=== PATIENT | male | born 1955 | race Caucasian/White ===

== ENCOUNTER 2018-01-04 09:41 | Outpatient (CLI) | payer MEDICARE, OTHER | END 2018-01-04 23:59 | disposition home or self-care (01) | LOC: CARD 09:41 | PROVIDERS: ATTEND Internal Medicine Interventional Cardiology | DX: I65.23 Occlusion and stenosis of bilateral carotid arteries (principal) | CPT/HCPCS: 93880-TC ==

== ENCOUNTER 2018-11-12 17:40 | Inpatient (IN) | payer MEDICARE, OTHER ==
[~2018-11-12] VITALS: Ht 165.1 cm; Wt 74.8 kg
[2018-11-12 17:58] LABS: BASOPHILS % (AUTO) 1.8 % (0.0-2.0); EOSINOPHILS % (AUTO) 1.5 % (0.0-6.0); HEMATOCRIT 25 % (39-51); HEMOGLOBIN 8.3 g/dL (13.5-17.5); LYMPHOCYTES # (AUTO) 0.9 /CMM (0.8-4.8); LYMPHOCYTES % (AUTO) 30.8 % (20.0-44.0); MEAN CORPUSCULAR HGB CONC 33 g/dl (31.0-36.0); MEAN CORPUSCULAR VOLUME 97 fL (80-96); MONOCYTES # (AUTO) 0.3 /CMM (0.1-1.30); MONOCYTES % (AUTO) 9.2 % (2.0-12.0); NEUTROPHILS # (AUTO) 1.6 /CMM (1.8-8.9); NEUTROPHILS % (AUTO) 56.7 % (43.0-81.0); PLATELET COUNT (AUTO) 51 /CMM (150-450); RED BLOOD CELL COUNT(AUTO) 2.58 MIL/uL (4.5-6.0); WHITE BLOOD COUNT (AUTO) 2.8 K/uL (4.3-11.0)
--- NOTE | 2018-11-12 18:00 | NUR ---
Sent by Dr. Quezada for new onset A-fib and shortness of breath. alert and oriented x 4, verbally responsive. on 02 @ 2lpm via NC, sating at 98%. in no apparent distress at this time. connected to the monitor, and pulse ox. kept comfortable. will continue to monitor accordingly.
--- NOTE | 2018-11-12 18:10 | NUR ---
RT ATTEMPTED TO PLACE PT ON BiPAP PER DR. LOPEZ REQUEST. PT UNABLE TO TOLERATE BiPAP AND IS STATING HE FEELS LIKE ITS TOO MUCH PRESSURE DESPITE BEING ON LOWEST BiPAP SETTINGS. PT FAMILY BY BEDSIDE FOR TRANSLATION. PT PLACED ON 2L NASAL CANNULA, TOLERATING WELL AT THIS TIME. JUANA LOYD AND DR LOPEZ NOTIFIED AND AWARE.
[2018-11-12 18:11] LABS: CALCIUM, SERUM 8.6 mg/dL (8.5-10.1); CREATININE 0.8 mg/dL (0.6-1.3); POTASSIUM 4.1 mmol/L (3.5-5.1)
[2018-11-12 18:17] LABS: ALBUMIN 3.2 g/dL (3.4-5.0); BILIRUBIN,DIRECT 0.1 mg/dL (0.0-0.2); BILIRUBIN,TOTAL 0.3 mg/dL (0.2-1.0); TOTAL PROTEIN, SERUM 6.3 g/dL (6.4-8.2)
[2018-11-12] MEDS ORDERED: IV NS 0.9% 1,000 ML BAG IV ONE (18:30)
[2018-11-12] MEDS ORDERED: DILTIAZEM HCL 25 MG IV IV ONE (18:30)
[2018-11-12] MEDS ORDERED: KETOROLAC TROMETHAMINE INJ 30 MG/ML VIAL IV ONE (19:00)
[2018-11-12] MEDS ORDERED: ASPIRIN 325 MG TABLET PO ONE ×2 (19:00)
[2018-11-12] MEDS ORDERED: KETOROLAC TROMETHAMINE 15 MG/ML VIAL ONE (19:07)
[2018-11-12] MEDS ORDERED: ASPIRIN 325 MG TABLET ONE (19:08)
[2018-11-12] MEDS ORDERED: DILTIAZEM HCL 25 MG IV ONE (19:08)
[2018-11-12 19:19] LABS: EOSINOPHILS % (MANUAL) 1 % (0-4); LYMPHOCYTES % (MANUAL) 31 % (16-48); MONOCYTES % (MANUAL) 6 % (0-11.0); NEUTROPHILS % (MANUAL) 62 (42-76)
[2018-11-12] MEDS ORDERED: HYDROCODONE/APAP 5/325MG 1 EACH TABLET PO PRN (20:30)
[2018-11-12] MEDS ORDERED: HYDROCODONE/APAP 10/325MG 1 EA TABLET PO PRN (20:30)
[2018-11-12] MEDS ORDERED: MAGNESIUM HYDROXIDE 30 ML UDC PO PRN (20:30)
[2018-11-12] MEDS ORDERED: MAG HYDROX/AL HYDROX/SIMETH 30 ML UDC PO PRN (20:30)
[2018-11-12] MEDS ORDERED: ACETAMINOPHEN 325 MG TABLET PO PRN (20:30)
[2018-11-12] MEDS ORDERED: Z GUARD REMEDY 2 OZ OINT TP PRN (20:30)
[2018-11-12] MEDS ORDERED: ONDANSETRON HCL/PF 4 MG/2 ML VIAL IVP PRN (20:30)
--- NOTE | 2018-11-12 20:47 | NUR ---
REPORT GIVEN TO JUANA CASTRO FOR JACKIE
[2018-11-12 21:20] VITALS: BP 118/69
--- NOTE | 2018-11-12 21:20 | NUR ---
DOG CONTROL OFFICERCIA AGENT NOTES Received patient from ER via rney accompanied by 2 ER staff. Admitted to Tele 321-2 due to AFIB/RVR under the service of Singh Ruby. Admission routine done. Patient preferred to keep on his pants, refused skin assessment, claimed skin intact. On tele monitor - AFIB 90. Patient remained stable at this time, denies discomfort. On O2 inhalation @ 2LPM, saturating well @ 95%. Instructed to keep on bed rest for this time until cleared to ambulate and to use urinal and/or BSC to preserve cardiac workload, patient verbalized understanding. Instructed on CCHO - no coffee, no tea, patient verbalized understanding. Kept HOB elevated, on strict I&O, and aspiration precaution. Kept bed low and locked, sidreails x2 up. Call light at bedside. Will continue to monitor accordingly.
[2018-11-12] MEDS ORDERED: DEXTROSE 50%-WATER 50 ML DISP.SYRIN IV PRN (21:30)
[2018-11-12] MEDS ORDERED: BISOPROLOL FUMARATE 5 MG TABLET PO ONE (22:00)
[2018-11-12] MEDS: IPRATROPIUM NEB FS 0.5 MG/2.5 ML AMPUL.NEB NEB SCH (22:00)
--- NOTE | 2018-11-12 22:00 | NUR ---
POULTRY FARMER EGG NOTES RN o and m supervisor notified for ordered Zebeta unavailable in the omnicel, RN o and m supervisor said this meds is not available at this time. Notified ordering physician, awaiting for response. Patient's BP remained stable, no discomfort noted. HR 114 BP 118/68mmHg. Will continue to monitor accordingly.
[2018-11-12] MEDS: BLOOD SUGAR DIAGNOSTIC 1 EACH STRIP IN SCH (22:06)
[2018-11-13] VITALS (8 sets, daily range): BP systolic 105–124; BP diastolic 38–79
[2018-11-13] MEDS: ALBUTEROL FS 2.5 MG/0.5 ML VIAL.NEB NEB SCH ×4 (01:30→19:30)
--- NOTE | 2018-11-13 06:32 | NUR ---
PATENT DRAFTER CLOSING NOTES Patient asleep on high-Rai's position on bed. On tele monitor - Afib 115. On DVT pump BLE, tolerated well. On O2 inhalation via NC @2LPM, saturating well. No SOB/respiratory distress noted at this time. Patient noted having 1 large BM. All nursing needs attended. Kept on bed rest, with BSC and urinal at bedside. Kept on NPO since midnight for cardio eval. Kept bed low and locked, siderails x2 up. Call light at bedside. Endorsed to the next shift.
[2018-11-13] MEDS: BLOOD SUGAR DIAGNOSTIC 1 EACH STRIP IN SCH ×4 (06:36→21:27)
[2018-11-13 07:26] LABS: CALCIUM, SERUM 8.4 mg/dL (8.5-10.1); CREATININE 0.7 mg/dL (0.6-1.3); MAGNESIUM 1.6 mg/dL (1.8-2.4); PHOSPHORUS 3.4 mg/dL (2.5-4.9)
[2018-11-13] MEDS: IPRATROPIUM NEB FS 0.5 MG/2.5 ML AMPUL.NEB NEB SCH ×3 (07:35→19:30)
[2018-11-13 07:38] LABS: BASOPHILS % (AUTO) 0.7 % (0.0-2.0); EOSINOPHILS % (AUTO) 0.8 % (0.0-6.0); HEMATOCRIT 23 % (39-51); HEMOGLOBIN 7.7 g/dL (13.5-17.5); LYMPHOCYTES # (AUTO) 0.8 /CMM (0.8-4.8); LYMPHOCYTES % (AUTO) 25.7 % (20.0-44.0); MEAN CORPUSCULAR HGB CONC 34 g/dl (31.0-36.0); MEAN CORPUSCULAR VOLUME 96 fL (80-96); MONOCYTES # (AUTO) 0.3 /CMM (0.1-1.30); MONOCYTES % (AUTO) 10.3 % (2.0-12.0); NEUTROPHILS # (AUTO) 1.9 /CMM (1.8-8.9); NEUTROPHILS % (AUTO) 62.5 % (43.0-81.0); RED BLOOD CELL COUNT(AUTO) 2.36 MIL/uL (4.5-6.0); THYROID STIMULATING HORMONE 9.16 uIU/mL (0.358-3.74); WHITE BLOOD COUNT (AUTO) 3.1 K/uL (4.3-11.0)
[2018-11-13 07:49] LABS: PLATELET COUNT (AUTO) 40 /CMM (150-450)
--- NOTE | 2018-11-13 08:00 | NUR ---
ENGINEERING SUPERVISOR AM NOTES Patient awake,verbally responsive on high-Rai's position on bed. On tele monitor - Afib 109. On DVT pump BLE, tolerated well. On O2 inhalation via NC @2LPM, saturating well. No SOB/respiratory distress noted at this time. Ambulates ad stevenson with steady gait with no distress noted.with BRP.Kept on NPO since midnight for cardio eval. Kept bed low and locked, siderails x2 up. Call light at bedside.
[2018-11-13] MEDS: methylPREDNISolone SOD SUCC 40 MG/ML VIAL IV SCH ×3 (08:31→17:19)
[2018-11-13] MEDS: Magnesium 1GM/D5W 100ML PREMIX 100 ML IV SCH ×4 (08:52→12:19)
[2018-11-13] MEDS ORDERED: BISOPROLOL FUMARATE 5 MG TABLET PO SCH ×2 (09:00→17:00)
[2018-11-13] MEDS ORDERED: ASPI-1169 PO (09:08)
[2018-11-13] MEDS ORDERED: PREG300C PO (09:08)
[2018-11-13] MEDS ORDERED: ATOR40TA PO (09:08)
[2018-11-13] MEDS ORDERED: ISOS30TA6 PO (09:08)
[2018-11-13] MEDS ORDERED: GLIP1TAB6 PO (09:08)
[2018-11-13 09:50] LABS: LYMPHOCYTES % (MANUAL) 9 % (16-48); MONOCYTES % (MANUAL) 8 % (0-11.0); NEUTROPHILS % (MANUAL) 83 (42-76)
[2018-11-13] MEDS: INSULIN REGULAR, HUMAN 100 UNIT/ML 3 ML VIAL SQ PRN ×3 (12:20→21:34)
[2018-11-13] MEDS ORDERED: BISOPROLOL FUMARATE 5 MG TABLET PO ONE (13:00)
[2018-11-13] MEDS ORDERED: REGADENOSON 0.4 MG/5 ML DISP.SYRIN IVP ONE (14:30)
--- NOTE | 2018-11-13 18:48 | NUR ---
Pt sitting in the chair surrounded by his loved ones.Pt decided to stay with family members' convincing and explaining the importance to have his Cardiac stress test tomorrow because pt's HR ranges from 90-120 which is unstable.Consent has been signed for NM Myocardial stress test for tomorrow.Instructed to stay NPO post midnight.Denies any pain or distress.Call light placed within reach.
--- NOTE | 2018-11-13 19:05 | NUR ---
TODDLER GUIDE OPENING NOTES Received patient A/O x 4 on Rai's position on bed. With patent peripheral IV line RH G@22, SL. On RA, no SOB/respiratory distress noted. With family at bedside. Patient denies any discomfort at this time. Reminded patient to keep on NPO at midnight for cardiac stress test in AM, patient verbalized understanding. Kept bed low and locked, siderails x2 up. Call light at bedside. Will continue to monitor accordingly.
--- NOTE | 2018-11-13 21:30 | NUR ---
MANAGER FLOAT NOTES Family leave the facility at this time. Administered due meds to patient, tolerated well. Will continue to monitor.
[2018-11-13] MEDS ORDERED: ATORVASTATIN 40 MG TABLET PO SCH (22:00)
[2018-11-13] MEDS ORDERED: TEMAZEPAM 15 MG CAPSULE PO PRN (22:00)
[2018-11-14] VITALS: BP 104/73
--- NOTE | 2018-11-14 | NUR ---
SPACE CONTROLLER NOTES KEPT ON NPO FOR CARDIAC STRESS TEST IN AM.
[2018-11-14] MEDS: ALBUTEROL FS 2.5 MG/0.5 ML VIAL.NEB NEB SCH ×3 (01:15→13:19)
[2018-11-14 04:00] VITALS: BP 134/90
[2018-11-14] MEDS: INSULIN REGULAR, HUMAN 100 UNIT/ML 3 ML VIAL SQ PRN (06:29)
[2018-11-14] MEDS: BLOOD SUGAR DIAGNOSTIC 1 EACH STRIP IN SCH ×2 (06:30→12:24)
--- NOTE | 2018-11-14 06:47 | NUR ---
ANIMAL THERAPIST CLOSING NOTES Patient asleep on supine position with HOB elevated. On RA, no SOB/respiratory distress noted. With patent peripheral IV line RH G#22. All due meds given as ordered. No new complaints made within the shift. Kept on NPO since midnight for cardiac stress test this AM. Unable to secure new IV line with bigger gauge after 4 attempts, laboratory animal caretaker unable to draw AM blood. Kept bed low and locked, siderails X2 up. Call light at bedside. Endorsed to the next shift.
--- NOTE | 2018-11-14 07:25 | NUR ---
BARIATRIC PHYSICIAN OPENING. PT WITH TELE CONT AFIB. PT RECEIVED A&0X3, AWAKE AND RESTING IN BED, INDIAN SPEAKING. PT NPO R/T STRESS TEST. PT TOLERATING ROOM AIR AND DENIES SOB OR RESP DISTRESS. PT DENIES PAIN OR DISCOMFORT. PT WITH IVC AT R HAND INTACT AND SALINE FLUSH PATENT. PT BED IN LOWEST LOCKED POSITION WITH HANDRAILSX2 AND CALL WATSON WITHIN REACH. PT BRIEFED ON TODAY'S POC AND IS WITHOUT COMPLAINT AT THIS TIME. WILL CONTINUE POC.
[2018-11-14] MEDS: IPRATROPIUM NEB FS 0.5 MG/2.5 ML AMPUL.NEB NEB SCH ×2 (07:35→13:19)
[2018-11-14 07:49] LABS: BASOPHILS % (AUTO) 0.5 % (0.0-2.0); EOSINOPHILS % (AUTO) 0.1 % (0.0-6.0); HEMATOCRIT 25 % (39-51); HEMOGLOBIN 8.5 g/dL (13.5-17.5); LYMPHOCYTES # (AUTO) 0.8 /CMM (0.8-4.8); LYMPHOCYTES % (AUTO) 24.5 % (20.0-44.0); MEAN CORPUSCULAR HGB CONC 34 g/dl (31.0-36.0); MEAN CORPUSCULAR VOLUME 96 fL (80-96); MONOCYTES # (AUTO) 0.2 /CMM (0.1-1.30); NEUTROPHILS # (AUTO) 2.3 /CMM (1.8-8.9); NEUTROPHILS % (AUTO) 67.9 % (43.0-81.0); RED BLOOD CELL COUNT(AUTO) 2.65 MIL/uL (4.5-6.0); WHITE BLOOD COUNT (AUTO) 3.5 K/uL (4.3-11.0)
[2018-11-14 07:55] LABS: PLATELET COUNT (AUTO) 41 /CMM (150-450)
[2018-11-14 08:00] VITALS: BP 166/77
[2018-11-14 08:05] LABS: CREATININE 0.7 mg/dL (0.6-1.3); MAGNESIUM 2.2 mg/dL (1.8-2.4); POTASSIUM 4.9 mmol/L (3.5-5.1)
[2018-11-14 08:35] LABS: BAND % (MANUAL) 4 % (0.0-5.0); EOSINOPHILS % (MANUAL) 1 % (0-4); LYMPHOCYTES % (MANUAL) 24 % (16-48); MONOCYTES % (MANUAL) 7 % (0-11.0); NEUTROPHILS % (MANUAL) 64 (42-76)
[2018-11-14] MEDS ORDERED: BISOPROLOL FUMARATE 5 MG TABLET PO SCH (09:00)
[2018-11-14] MEDS ORDERED: ISOSORBIDE MONONITRATE (30MG) 30 MG TAB.SR.24H PO SCH (09:00)
[2018-11-14 09:49] VITALS: BP 123/92
[2018-11-14] MEDS: methylPREDNISolone SOD SUCC 40 MG/ML VIAL IV SCH ×2 (09:49→13:00)
[2018-11-14] MEDS ORDERED: BISO10TA PO (10:22)
--- NOTE | 2018-11-14 13:11 | NUR ---
INTERACTIVE PRODUCER D/C. PT PREPARED FOR D/C PER MD. PT AND SON PRESENT, SON FOR TRANSLATION. PT TOLERATING ROOM AIR AND DENIES SOB OR RESP DISTRESS AT THIS TIME- DOES NOT WANT TO WAIT FOR SCHEDULED RT. PT DENIES PAIN OR DISCOMFORT. PT IVC REMOVED AND NAD AT SITE. PT WITH ALL BELONGINGS AND DOCUMENT SIGNED. PHARMACY CALLED AND RX READY FOR WICKER MOLDED CANDLES. PT AND SON BRIEFED ON [facility] D/C PACKET, NEW SCRIPTS, FOLLOW UP WITH CARDIOLOGY AND REGULAR ONCOLOGY, PT HAS ALL CONTACT DETAILS. CARDIOLOGY OK FRO PT TO LEAVE PRIOR TO NM STRESS TEST RESULTS. PT WILL FOLLOW UP WITH [facility] FOR REPORT. PT AND SON VERBALIZING UNDERSTANDING, RESOURCES AND INTENT TO FOLLOW POC. PT LEFT AMB WITH FAMILY FOR TRANSPORT, HOME SELF CARE. PT AND FAMILY LEFT WITHOUT CONCERN OR COMPLAINT AND GRATEFUL FOR CARE.
[2018-11-28] MEDS ORDERED: FLUT1DIS28 IH (11:45)
[2018-11-28] MEDS ORDERED: METH2TAB GT (11:45)
== END 2018-11-14 13:30 | disposition home or self-care (01) | DRG 308 ==
LOC: ER 17:45 → TELE 19:59 → MED 11-14 13:07
PROVIDERS: ADMIT Nurse Practitioner Acute Care; ATTEND Nurse Practitioner Acute Care
DX: I48.91 Unspecified atrial fibrillation (principal); D61.810 Antineoplastic chemotherapy induced pancytopenia; B02.29 Other postherpetic nervous system involvement; J44.1 Chronic obstructive pulmonary disease with (acute) exacerbation; E44.1 Mild protein-calorie malnutrition; Z85.72 Personal history of non-Hodgkin lymphomas; I65.21 Occlusion and stenosis of right carotid artery; E11.51 Type 2 diabetes mellitus with diabetic peripheral angiopathy without gangrene; I25.5 Ischemic cardiomyopathy; Z87.891 Personal history of nicotine dependence; Z92.3 Personal history of irradiation; E66.9 Obesity, unspecified; Z68.27 Body mass index [BMI] 27.0-27.9, adult; E78.5 Hyperlipidemia, unspecified; I10 Essential (primary) hypertension; T45.1X5A Adverse effect of antineoplastic and immunosuppressive drugs, initial encounter; Z82.49 Family history of ischemic heart disease and other diseases of the circulatory system; Z95.5 Presence of coronary angioplasty implant and graft; Z95.2 Presence of prosthetic heart valve; I25.10 Atherosclerotic heart disease of native coronary artery without angina pectoris
CPT/HCPCS: 36415; 71045-TC; 80048-TC; 80061-TC; 80076-TC; 82962-TC; 83690-TC; 83735-TC; 83880; 84100-TC; 84443-TC; 84484-TC; 85025-TC; 85730-TC; 87081-TC; A9502; G0378; J1815; J1885; J2785; J2920; J3475; J3490; J7030

== ENCOUNTER 2018-11-27 10:29 | Inpatient (IN) | payer MEDICARE, OTHER ==
[~2018-11-27] VITALS: Ht 167.6 cm; Wt 70.8 kg
[~2018-11-27 10:29] MED LIST: ASPI-1169 PO; ATOR40TA PO; BISO10TA PO; GLIP1TAB6 PO; ISOS30TA6 PO; PREG300C PO
--- NOTE | 2018-11-27 10:50 | NUR ---
PT Progressive SOB and weakness x 3 weeks, + WHEEZING, - ESTRADA N/V -SYNCOPE, PT GETTING BRTH TX, COMFORTABLE ON 2L 02 100%
[2018-11-27] MEDS ORDERED: ALBUTEROL FS 2.5 MG/3 ML VIAL.NEB NEB ONE (11:00)
[2018-11-27] MEDS ORDERED: FUROSEMIDE 40 MG/4 ML VIAL IV ONE (11:00)
[2018-11-27 11:03] LABS: BASOPHILS % (AUTO) 0.8 % (0.0-2.0); EOSINOPHILS % (AUTO) 0.7 % (0.0-6.0); HEMATOCRIT 26 % (39-51); HEMOGLOBIN 8.7 g/dL (13.5-17.5); LYMPHOCYTES # (AUTO) 1.1 /CMM (0.8-4.8); LYMPHOCYTES % (AUTO) 43.6 % (20.0-44.0); MEAN CORPUSCULAR HGB CONC 33 g/dl (31.0-36.0); MEAN CORPUSCULAR VOLUME 97 fL (80-96); MONOCYTES # (AUTO) 0.2 /CMM (0.1-1.30); MONOCYTES % (AUTO) 8.4 % (2.0-12.0); NEUTROPHILS # (AUTO) 1.2 /CMM (1.8-8.9); NEUTROPHILS % (AUTO) 46.5 % (43.0-81.0); RED BLOOD CELL COUNT(AUTO) 2.69 MIL/uL (4.5-6.0); WHITE BLOOD COUNT (AUTO) 2.5 K/uL (4.3-11.0)
[2018-11-27] MEDS ORDERED: ALBUTEROL FS 2.5 MG/3 ML VIAL.NEB ONE (11:03)
[2018-11-27 11:06] LABS: PLATELET COUNT (AUTO) 25 /CMM (150-450)
[2018-11-27 11:10] LABS: CALCIUM, SERUM 8.2 mg/dL (8.5-10.1); CREATININE 0.8 mg/dL (0.6-1.3); POTASSIUM 3.5 mmol/L (3.5-5.1)
[2018-11-27] MEDS ORDERED: FUROSEMIDE 40 MG/4 ML VIAL ONE (11:17)
[2018-11-27 11:22] LABS: ALBUMIN 2.9 g/dL (3.4-5.0); BILIRUBIN,DIRECT 0.1 mg/dL (0.0-0.2); BILIRUBIN,TOTAL 0.4 mg/dL (0.2-1.0); TOTAL PROTEIN, SERUM 5.4 g/dL (6.4-8.2)
--- NOTE | 2018-11-27 11:37 | NUR ---
ADMIT TO 116-2 TELE DX HEART FAILURE ACCEPTING [facility]
[2018-11-27 11:49] LABS: LYMPHOCYTES % (MANUAL) 35 % (16-48); MONOCYTES % (MANUAL) 8 % (0-11.0); NEUTROPHILS % (MANUAL) 57 (42-76)
[2018-11-27] MEDS ORDERED: DILT-32 PO (11:53)
[2018-11-27] MEDS ORDERED: VALA500T PO (11:53)
--- NOTE | 2018-11-27 12:02 | NUR ---
REPORT GIVEN TO Mark ARIAS JACKIE. PT STABLE AND COMFORTABLE
[2018-11-27] MEDS ORDERED: MAGNESIUM HYDROXIDE 30 ML UDC PO PRN (13:00)
[2018-11-27] MEDS ORDERED: HYDROCODONE/APAP 5/325MG 1 EACH TABLET PO PRN (13:00)
[2018-11-27] MEDS ORDERED: MAG HYDROX/AL HYDROX/SIMETH 30 ML UDC PO PRN (13:00)
[2018-11-27] MEDS ORDERED: ACETAMINOPHEN 325 MG TABLET PO PRN (13:00)
[2018-11-27] MEDS ORDERED: ONDANSETRON HCL/PF 4 MG/2 ML VIAL IVP PRN (13:00)
[2018-11-27] MEDS ORDERED: ZOLPIDEM TARTRATE 5 MG TABLET PO PRN (13:00)
[2018-11-27] MEDS ORDERED: Z GUARD REMEDY 2 OZ OINT TP PRN (13:00)
--- NOTE | 2018-11-27 13:01 | NUR ---
Patient discharged TELE ROOM 119-2 in stable condition. REPORT GIVEN TO Mark ARIAS, PT STABLE
--- NOTE | 2018-11-27 13:05 | NUR ---
HOISTMAN NOTE: PATIENT CAME IN VIA GURNEY FROM ER. REPORT RECEIVED AN HOUR BEFORE FROM JUANA FORBES. PATIENT AMBULATED FROM GURNEY TO BED. FAMILY ON BEDSIDE. PT IS A&OX4. ON O2 2L NC SATING 100%. PT CAME IN WITH SOB WITH ADMITTING DX ACUTE CHF. HAS A RIGHT WRIST #22 SL. ON TELE MONITOR HR 94. NO FEVER. NO COMPLAINS OF PAIN OR ANY DISTRESS. MRSA SWAB HAS BEEN DONE. BED LOCKED AND LOWEST POSITION. CALL LIGHT WITHIN REACH. WILL CONTINUE TO MONITOR
[2018-11-27 13:24] VITALS: BP 90/50
[2018-11-27 13:30] VITALS: BP 90/50
[2018-11-27 16:00] VITALS: BP 96/62
[2018-11-27] MEDS ORDERED: methylPREDNISolone SOD SUCC 125 MG/2ML VIAL IV ONE (16:30)
[2018-11-27] MEDS: BISOPROLOL FUMARATE 5 MG TABLET PO SCH (16:49)
[2018-11-27] MEDS ORDERED: FUROSEMIDE 40 MG/4 ML VIAL IV SCH (17:00)
[2018-11-27] MEDS ORDERED: methylPREDNISolone SOD SUCC 125 MG/2ML VIAL IV SCH (17:00)
[2018-11-27] MEDS: ALBUTEROL FS 2.5 MG/3 ML VIAL.NEB NEB SCH ×2 (17:16→23:35)
[2018-11-27] MEDS: IPRATROPIUM NEB FS 0.5 MG/2.5 ML AMPUL.NEB NEB PRN (17:19)
--- NOTE | 2018-11-27 17:31 | NUR ---
RT PT HAS A STRONG COUGH BUT WAS UNABLE TO PRODUCE A SPUTUM SAMPLE. ORAL AND NASO SX ATTEMPTED BUT WAS UNSUCCESSFUL AT OBTAINING SPUTUM SAMPLE. Addendum: 11/27/18 at 1805 by KD BOYER RT Amended: Links added.
--- NOTE | 2018-11-27 18:55 | NUR ---
INITIAL ECHO SHOWED EF 25-30%~. ADVISED GEOFF (RN) AND DR. LOCKHART OF PRELIMINARY RESULTS.
[2018-11-27 20:00] VITALS: BP 110/64
--- NOTE | 2018-11-27 20:39 | NUR ---
RN NOTES PATIENT IS COMPLAINING OF ITCHING ALL OVER THE BODY AND ASKED FOR BENADRYL. CALLED STUDENT SERVICES REPRESENTATIVE BLAINE WAYNE FOR THE ORDER AND NEW ORDER OF BENADRYL 25MG IV ONCE IS IN PLACE WITH THE ORDER OF REPEAT THE SAME DOSE AND ROUGH OF ADMINISTRATION IF FIRST DOSE DOES NOT HELP. WILL CONTINUE TO MONITOR PATIENT .
[2018-11-27] MEDS ORDERED: diphenhydrAMINE HCL 50 MG/ML VIAL IV ONE (21:00)
[2018-11-27] MEDS ORDERED: ATORVASTATIN 40 MG TABLET PO SCH (22:00)
[2018-11-28] VITALS: BP 117/73
[2018-11-28 04:00] VITALS: BP 134/85
[2018-11-28] MEDS: ALBUTEROL FS 2.5 MG/3 ML VIAL.NEB NEB SCH ×3 (04:18→11:15)
[2018-11-28 07:25] LABS: BASOPHILS % (AUTO) 0.2 % (0.0-2.0); HEMATOCRIT 30 % (39-51); HEMOGLOBIN 10.1 g/dL (13.5-17.5); LYMPHOCYTES # (AUTO) 1.1 /CMM (0.8-4.8); LYMPHOCYTES % (AUTO) 46.2 % (20.0-44.0); MEAN CORPUSCULAR HGB CONC 34 g/dl (31.0-36.0); MEAN CORPUSCULAR VOLUME 95 fL (80-96); MONOCYTES # (AUTO) 0.1 /CMM (0.1-1.30); MONOCYTES % (AUTO) 3.2 % (2.0-12.0); NEUTROPHILS # (AUTO) 1.2 /CMM (1.8-8.9); NEUTROPHILS % (AUTO) 50.4 % (43.0-81.0); RED BLOOD CELL COUNT(AUTO) 3.11 MIL/uL (4.5-6.0); WHITE BLOOD COUNT (AUTO) 2.4 K/uL (4.3-11.0)
[2018-11-28 07:35] LABS: CALCIUM, SERUM 9.5 mg/dL (8.5-10.1); CREATININE 1.1 mg/dL (0.6-1.3); MAGNESIUM 1.9 mg/dL (1.8-2.4); PHOSPHORUS 4.3 mg/dL (2.5-4.9); POTASSIUM 4.6 mmol/L (3.5-5.1)
[2018-11-28 07:50] LABS: THYROID STIMULATING HORMONE 1.889 uIU/mL (0.358-3.74)
[2018-11-28 08:00] VITALS: BP 128/78
[2018-11-28 08:08] LABS: PLATELET COUNT (AUTO) 30 /CMM (150-450)
[2018-11-28] MEDS: IPRATROPIUM NEB FS 0.5 MG/2.5 ML AMPUL.NEB NEB PRN (08:13)
[2018-11-28 08:51] LABS: LYMPHOCYTES % (MANUAL) 49 % (16-48); MONOCYTES % (MANUAL) 6 % (0-11.0); NEUTROPHILS % (MANUAL) 45 (42-76)
[2018-11-28] MEDS ORDERED: ISOSORBIDE MONONITRATE (30MG) 30 MG TAB.SR.24H PO SCH (09:00)
[2018-11-28] MEDS ORDERED: DILTIAZEM HCL CD 120 MG PO SCH (09:00)
[2018-11-28] MEDS ORDERED: FUROSEMIDE 40 MG/4 ML VIAL IV SCH (09:00)
[2018-11-28] MEDS: BISOPROLOL FUMARATE 5 MG TABLET PO SCH (09:31)
[2018-11-28] MEDS: methylPREDNISolone SOD SUCC 125 MG/2ML VIAL IV SCH ×2 (09:32→13:29)
[2018-11-28] MEDS ORDERED: FLUT1DIS28 IH (11:45)
[2018-11-28] MEDS ORDERED: METH2TAB GT (11:45)
[2018-11-28 12:00] VITALS: BP_SYST 108; BP_DIAS 72; BP_DIAS 75
--- NOTE | 2018-11-28 13:50 | NUR ---
RN NOTE PT DISCHARGED HOME WITH [facility], , VIA OWN TRANSPORTATION IN STABLE CONDITION, EXIT CARE DONE, DISCHARGE INSTRUCTIONS PROVIDED, TEACHING DONE, PT VERBALIZED UNDERSTANDING, FOLLOW UP APPOINTMENT SET UP FOR TOMORROW 11/29/18 AT 1230. ID BAND REMOVED, IV REMOVED, PRESSURE APPLIED TO PREVENT BLEEDING FROM IV SITE, DRESSING APPLIED, CLEAN AND DRY. BELONGINGS LIST SIGNED, BELONGINGS PROVIDED TO PT. PRESCRIPTION PROVIDE TO PT AND MEDICATION LIST GIVEN, PAPERS SIGNED AND COPIES LEFT IN THE CHART.
== END 2018-11-28 13:47 | disposition home or self-care (01) | DRG 291 ==
LOC: ER 10:31 → TELE1 11:50
PROVIDERS: ADMIT Student in an Organized Health Care Education/Training Program; ATTEND Student in an Organized Health Care Education/Training Program
DX: I11.0 Hypertensive heart disease with heart failure (principal); I50.21 Acute systolic (congestive) heart failure; E44.1 Mild protein-calorie malnutrition; J44.1 Chronic obstructive pulmonary disease with (acute) exacerbation; B02.29 Other postherpetic nervous system involvement; D61.818 Other pancytopenia; C85.90 Non-Hodgkin lymphoma, unspecified, unspecified site; Z79.84 Long term (current) use of oral hypoglycemic drugs; Z79.899 Other long term (current) drug therapy; E78.5 Hyperlipidemia, unspecified; I25.10 Atherosclerotic heart disease of native coronary artery without angina pectoris; I48.91 Unspecified atrial fibrillation; D69.6 Thrombocytopenia, unspecified; I65.21 Occlusion and stenosis of right carotid artery; E11.51 Type 2 diabetes mellitus with diabetic peripheral angiopathy without gangrene; I25.5 Ischemic cardiomyopathy; Z98.61 Coronary angioplasty status; Z92.21 Personal history of antineoplastic chemotherapy; Z92.3 Personal history of irradiation; Z87.891 Personal history of nicotine dependence; Z85.6 Personal history of leukemia; Z82.49 Family history of ischemic heart disease and other diseases of the circulatory system; Z79.82 Long term (current) use of aspirin; Z95.1 Presence of aortocoronary bypass graft; I50.32 Chronic diastolic (congestive) heart failure; E66.9 Obesity, unspecified; Z68.25 Body mass index [BMI] 25.0-25.9, adult
CPT/HCPCS: 36415; 71045-TC; 80048-TC; 80061-TC; 80076-TC; 83735-TC; 83880; 84100-TC; 84443-TC; 84484-TC; 85025-TC; 85730-TC; 87081-TC; 93307-TC; G0378; J1200; J1940; J2930